=== PATIENT | female | born 1975 | race Caucasian/White ===

== ENCOUNTER 2024-07-04 08:24 | Day surgery (SDC) | payer MEDICAID, SELFPAY ==
[2024-06-29 07:58] VITALS: BMI 31.3
--- NOTE | 2024-07-01 09:09 | HO.ANESPROP2 ---
Documented by User: Vee Elder NP 07/01/24 09:10 HPI - Anesthesia Eval Consult details Narrative: 48yo F for Left Cataract Extraction IOL Insertion No previous cataract on record Eliquis for PE Ostomy in situ [facility] Past Medical History Medical History (Updated 07/04/24 @ 09:31 by Tracey Theodore, RN) Port-A-Cath in place On anticoagulant therapy Pulmonary embolism Colostomy in place Hypomagnesemia Anemia Metastatic colon cancer to liver Surgical History Surgical History (Updated 06/29/24 @ 07:46 by Luli Kendrick RN) Hx of colectomy Social History Social History Are you DNR?: No Advance Directives: No Advance Directives Information Provided: Yes Advance Directives on File: No Meds Allergies Allergy/AdvReac Type Severity Reaction Status Date / Time lisinopril Allergy Severe Anaphylaxis Verified 07/04/24 09:30 Home Medications ?Medication ?Instructions ?Recorded ?Confirmed ?Last Taken ?Type apixaban 5 mg tablet (Eliquis) 5 mg PO BID 06/29/24 06/29/24 Unknown History desonide 0.05 % topical cream 1 appl topical BID 06/29/24 06/29/24 Unknown History magnesium oxide 400 mg (241.3 mg 400 mg PO DAILY 06/29/24 06/29/24 Unknown History magnesium) tablet metoprolol tartrate 25 mg tablet 25 mg PO BID 06/29/24 06/29/24 Unknown History oxycodone 10 mg tablet 10 mg PO Q6H PRN severe pain 06/29/24 06/29/24 Unknown History Exam Height,Weight and Vital Signs: Height 5 ft 5 in Weight 85.3 kg Assessment and Plan Assessment Anesthesia Assessment: Chart Reviewed Documented by User: Thania Cevallos MD 07/04/24 09:55 [facility] Past Medical History Medical History (Updated 07/04/24 @ 09:31 by Tracey Theodore RN) Port-A-Cath in place On anticoagulant therapy Pulmonary embolism Colostomy in place Hypomagnesemia Anemia Metastatic colon cancer to liver Family History Family history of problems with anesthesia: No Surgical History Surgical History (Updated 06/29/24 @ 07:46 by Luli Kendrick RN) Hx of colectomy History of Problems with Anesthesia: No Social History Social History Are you DNR?: No Advance Directives: No Advance Directives Information Provided: Yes Advance Directives on File: No Meds Allergies Allergy/AdvReac Type Severity Reaction Status Date / Time lisinopril Allergy Severe Anaphylaxis Verified 07/04/24 09:30 Home Medications ?Medication ?Instructions ?Recorded ?Confirmed ?Last Taken ?Type apixaban 5 mg tablet (Eliquis) 5 mg PO BID 06/29/24 06/29/24 Unknown History desonide 0.05 % topical cream 1 appl topical BID 06/29/24 06/29/24 Unknown History magnesium oxide 400 mg (241.3 mg 400 mg PO DAILY 06/29/24 06/29/24 Unknown History magnesium) tablet metoprolol tartrate 25 mg tablet 25 mg PO BID 06/29/24 06/29/24 Unknown History oxycodone 10 mg tablet 10 mg PO Q6H PRN severe pain 06/29/24 06/29/24 Unknown History Exam Airway Mallampati Class: II (missing a couple, denies anything loose) TM Dist: >3cm Neck ROM: Full Heart: rrr Lungs: cta Assessment and Plan Assessment Anesthesia Assessment: Anesthesia Plan Discussed Final Anesthetic Review Family History of Problems with Anesthesia: No History of Problems with Anesthesia: No NPO: Yes ASA Class: III Final Preanesthetic Review: No Changes in Pt Med Stat, Meds/Allgs Chart Reviewed and Consent Obtained/Reviewed Patient Risk: Intermediate Procedure Risk: Low Anesthetic Plan Anesthetic Plan: MAC: Disposition: Standard PACU
[2024-07-04 09:45] VITALS: BP 101/75; PULSE 86; RESP 16; TEMP 36.7; O2SAT 99
[2024-07-04 09:45] LABS: UPreg QC Valid YES; Urine Pregnancy NEGATIVE (NEGATIVE)
[2024-07-04] MEDS: Lactated Ringers 500 ML 50 ML IV (09:51)
[2024-07-04] MEDS: Tetracaine HCl/PF 0.5% Oph Sol 4 ML DROPS 1 DROP EYE-LEFT (09:52)
[2024-07-04] MEDS: Cyclopentolate 1 % Ophth Sol 2 ML DRPBTL 1 DROP EYE-LEFT ×3 (10:01→10:06)
[2024-07-04] MEDS: Tropicamide 1 % Ophth Sol 3 ML BTL 1 DROP EYE-LEFT ×3 (10:01→10:06)
[2024-07-04] MEDS: Phenylephrine HCL 2.5% Oph SoL 2 ML BOTTLE 1 DROP EYE-LEFT ×3 (10:02→10:07)
[2024-07-04] MEDS: Ketorolac Tromethamine 0.5% Op 10 ML DROPS 1 DROP EYE-LEFT ×3 (10:02→10:07)
--- NOTE | 2024-07-04 10:22 | MHC.SHP ---
Pre-Procedural Eval Section A - 24 Hr Update-Section A only Date of Service: 07/04/24 The patient is an INPATIENT: No Changes since office visit: No Cold of Flu in the past 2 weeks, No New Medical Problems, No Changes in Medication and No Patient answered all questions The patient has been examined within 24 hours of the surgical procedure. The History & Physical has been completed within 30 days and I have reviewed it.: Yes Section B - Complete if H&P > 30 days Chief Complaint: Age-related nuclear cataract, left eye Allergies: Allergies Allergy/AdvReac Type Severity Reaction Status Date / Time lisinopril Allergy Severe Anaphylaxis Verified 07/04/24 09:30 Plan Diagnosis/Plan: Unchanged I have reviewed the history and physical and performed a pertinent physical examination on my patient. No changes have occurred unless specified. Time Spent With Patient Time: Total time managing care of this patient today ____ minutes.
--- NOTE | 2024-07-04 10:23 | HO.PNOPHT ---
Ophthalmology Procedure Procedure Date of Service: 07/04/24 Ophthalmology Viscoelastic: Healon Duet Dual Pack Pro Ophthalmology Lenses: IOL Acrysof MP - MA60AC (20.5) Procedure Notes: PREOPERATIVE DIAGNOSIS: Decreased visual acuity left eye secondary to cataract POSTOPERATIVE DIAGNOSIS: Same PROCEDURE: Left cataract extraction with intraocular lens insertion SURGEON: Phill Ybarra M.D. ANESTHESIA: Topical/MAC ESTIMATED BLOOD LOSS: None COMPLICATIONS: None After obtaining informed consent, the patient was brought to the operation room suite and placed in the supine position. After adequate sedation per anesthesia, topical drops of Tetracaine were given to the left eye. The eye was then prepped and draped in the usual sterile fashion. The operating room microscope was then positioned over the operative eye and a lid speculum placed. A paracentesis was created. White cataract required Visian blue. Viscoelastic was then instilled into the anterior chamber. A three plane incision was then created temporally, utilizing a 2.85 mm keratome. Capsulotomy forceps were then utilized to create a circular tear capsulotomy. Hydrodissection and hydrodelineation were carried out until adequate mobilization of the nucleus occurred. Phacoemulsification was then utilized to remove the dense central nucleus followed by removal of the cortical material utilizing the automated aspiration irrigation unit. Viscoat elastic was instilled into the posterior capsular bag followed by placement of a posterior chamber intraocular lens without difficulty. The residual Viscoat elastic was then removed utilizing the automated IA machine. The wound was check and found to be watertight. The patient tolerated the procedure well and the lid speculum was removed. Intracameral injection of Vigamox 0.1 mL followed by a subtenon injection of Kenalog-40 0.2 mL were administered. The patient will be seen in the a.m.
[2024-07-04 11:06] VITALS: BP 103/72; PULSE 85; RESP 20; TEMP 36.4; O2SAT 99
== END 2024-07-04 11:12 | disposition home or self-care (01) ==
PROVIDERS: Nurse Practitioner; Visit Provider Ophthalmology
PROC: (CPT 66985; principal; 2024-07-04 10:30)
DX: H25.12 Age-related nuclear cataract, left eye (principal); H54.7 Unspecified visual loss; E83.42 Hypomagnesemia; D64.9 Anemia, unspecified; I26.99 Other pulmonary embolism without acute cor pulmonale; Z79.01 Long term (current) use of anticoagulants; C18.9 Malignant neoplasm of colon, unspecified; C78.7 Secondary malignant neoplasm of liver and intrahepatic bile duct; Z93.3 Colostomy status; Z95.828 Presence of other vascular implants and grafts; Z79.899 Other long term (current) drug therapy; Z88.8 Allergy status to other drugs, medicaments and biological substances
CPT/HCPCS: 66984; 81025; J2250; J3301; V2630

== ENCOUNTER 2024-08-01 08:14 | Day surgery (SDC) | payer MEDICAID, SELFPAY ==
[2024-06-29 07:59] VITALS: BMI 31.3
--- NOTE | 2024-07-28 13:45 | HO.ANESPROP2 ---
Documented by User: Vee Elder NP 07/28/24 13:46 HPI - Anesthesia Eval Consult details Narrative: 49yo F for Right Cataract Extraction IOL Insertion Left eye 07/04/24: Midaz 2 Eliquis for PE Ostomy in situ [facility] Past Medical History Medical History Port-A-Cath in place On anticoagulant therapy Pulmonary embolism Colostomy in place Hypomagnesemia Anemia Metastatic colon cancer to liver Family History Family history of problems with anesthesia: No Surgical History Surgical History Hx of left cataract extraction Hx of colectomy History of Problems with Anesthesia: No Social History Social History Are you DNR?: No Advance Directives: No Advance Directives Information Provided: Yes Advance Directives on File: No Meds Allergies Allergy/AdvReac Type Severity Reaction Status Date / Time lisinopril Allergy Severe Anaphylaxis Verified 08/01/24 09:38 Home Medications ?Medication ?Instructions ?Recorded ?Confirmed ?Last Taken ?Type apixaban 5 mg tablet (Eliquis) 5 mg PO BID 06/29/24 06/29/24 Unknown History desonide 0.05 % topical cream 1 appl topical BID 06/29/24 06/29/24 Unknown History magnesium oxide 400 mg (241.3 mg 400 mg PO DAILY 06/29/24 06/29/24 Unknown History magnesium) tablet metoprolol tartrate 25 mg tablet 25 mg PO BID 06/29/24 06/29/24 Unknown History oxycodone 10 mg tablet 10 mg PO Q6H PRN severe pain 06/29/24 06/29/24 Unknown History Exam Height,Weight and Vital Signs: Height 5 ft 5 in Weight 85.3 kg Assessment and Plan Assessment Anesthesia Assessment: Chart Reviewed Final Anesthetic Review Family History of Problems with Anesthesia: No History of Problems with Anesthesia: No Documented by User: Miladys Minor MD 08/01/24 10:04 [facility] Past Medical History Medical History Port-A-Cath in place On anticoagulant therapy Pulmonary embolism Colostomy in place Hypomagnesemia Anemia Metastatic colon cancer to liver Functional capacity: bed bound Surgical History Surgical History Hx of left cataract extraction Hx of colectomy Social History Social History Are you DNR?: No Advance Directives: No Advance Directives Information Provided: Yes Advance Directives on File: No Meds Allergies Allergy/AdvReac Type Severity Reaction Status Date / Time lisinopril Allergy Severe Anaphylaxis Verified 08/01/24 09:38 Home Medications ?Medication ?Instructions ?Recorded ?Confirmed ?Last Taken ?Type apixaban 5 mg tablet (Eliquis) 5 mg PO BID 06/29/24 06/29/24 Unknown History desonide 0.05 % topical cream 1 appl topical BID 06/29/24 06/29/24 Unknown History magnesium oxide 400 mg (241.3 mg 400 mg PO DAILY 06/29/24 06/29/24 Unknown History magnesium) tablet metoprolol tartrate 25 mg tablet 25 mg PO BID 06/29/24 06/29/24 Unknown History oxycodone 10 mg tablet 10 mg PO Q6H PRN severe pain 06/29/24 06/29/24 Unknown History Exam Airway Mallampati Class: III TM Dist: >3cm Neck ROM: Full Loose/Missing/Broken Teeth: No Heart: RRR Lungs: CTA Assessment and Plan Assessment Anesthesia Assessment: Anesthesia Plan Discussed Final Anesthetic Review NPO: Yes ASA Class: III Final Preanesthetic Review: Meds/Allgs Chart Reviewed, Consent Obtained/Reviewed and Anes Risks/Benef Reviewed Patient Risk: Intermediate Procedure Risk: Low Anesthetic Plan Anesthetic Plan: MAC: Disposition: Standard PACU
[2024-08-01 09:52] LABS: UPreg QC Valid YES; Urine Pregnancy NEGATIVE (NEGATIVE)
[2024-08-01] MEDS: Tetracaine HCl/PF 0.5% Oph Sol 4 ML DROPS 1 DROP EYE-RIGHT (09:52)
[2024-08-01] MEDS: Cyclopentolate 1 % Ophth Sol 2 ML DRPBTL 1 DROP EYE-RIGHT ×3 (09:53→10:04)
[2024-08-01] MEDS: Tropicamide 1 % Ophth Sol 3 ML BTL 1 DROP EYE-RIGHT ×3 (09:54→10:05)
[2024-08-01] MEDS: Ketorolac Tromethamine 0.5% Op 10 ML DROPS 1 DROP EYE-RIGHT ×3 (09:56→10:07)
[2024-08-01] MEDS: Phenylephrine HCL 2.5% Oph SoL 2 ML BOTTLE 1 DROP EYE-RIGHT ×3 (09:57→10:08)
[2024-08-01] MEDS: Lactated Ringers 500 ML 50 ML IV (09:58)
[2024-08-01 10:02] VITALS: BP 100/77; PULSE 78; RESP 15; TEMP 36.4; O2SAT 100
--- NOTE | 2024-08-01 10:14 | P.PCNO_ITS ---
Ophthalmology Procedure Procedure Date of Service: 08/01/24 Ophthalmology Viscoelastic: Healon Duet Dual Pack Pro Ophthalmology Lenses: IOL Acrysof MP - MA60AC (20.5) Procedure Notes: PREOPERATIVE DIAGNOSIS: Decreased visual acuity right eye secondary to cataract POSTOPERATIVE DIAGNOSIS: Same PROCEDURE: Right cataract extraction with intraocular lens insertion, White Cataract reqired Vision Blue SURGEON: Phill Ybarra M.D. ANESTHESIA: Topical/MAC ESTIMATED BLOOD LOSS: None COMPLICATIONS: None After obtaining informed consent, the patient was brought to the operating room suite and placed in the supine position. After adequate sedation per anesthesia, topical drops of Tetracaine were given to the right eye. The eye was then prepped and draped in the usual sterile fashion. The operating room microscope was then positioned over the operative eye and a lid speculum placed. A paracentesis was created. Viscoelastic was then instilled into the anterior chamber. A three plane incision was then created temporally, utilizing a 2.85 mm keratome. Air was utilized to fill the anterior Chamber followed by instilling vision blue dye.Capsulotomy forceps were then utilized to create a circular tear capsulotomy. Hydrodissection and hydrodelineation were carried out until adequate mobilization of the nucleus occurred. Phacoemulsification was then utilized to remove the dense central nucleus followed by removal of the cortical material utilizing the automated aspiration irrigation unit. Viscoelastic was instilled into the posterior capsular bag followed by placement of a posterior chamber intraocular lens without difficulty. The residual Viscoelastic was then removed utilizing the automated IA machine. The wound was checked and found to be watertight. The patient tolerated the procedure well and the lid speculum was removed. Intracameral injection of Viga mox 0.1 mL followed by a subtenon injection of Kenalog-40 0.2 mL were administered. The patient will be seen in the a.m.
--- NOTE | 2024-08-01 10:14 | MHC.SHP ---
Pre-Procedural Eval Section A - 24 Hr Update-Section A only Date of Service: 08/01/24 The patient is an INPATIENT: No Changes since office visit: No Cold of Flu in the past 2 weeks, No New Medical Problems, No Changes in Medication and No Patient answered all questions The patient has been examined within 24 hours of the surgical procedure. The History & Physical has been completed within 30 days and I have reviewed it.: Yes Section B - Complete if H&P > 30 days Chief Complaint: Age-related nuclear cataract, right eye Allergies: Allergies Allergy/AdvReac Type Severity Reaction Status Date / Time lisinopril Allergy Severe Anaphylaxis Verified 08/01/24 09:38 Plan Diagnosis/Plan: Unchanged I have reviewed the history and physical and performed a pertinent physical examination on my patient. No changes have occurred unless specified. Time Spent With Patient Time: Total time managing care of this patient today ____ minutes.
[2024-08-01 10:48] VITALS: BP 112/61; PULSE 87; RESP 16; TEMP 36.1; O2SAT 99
== END 2024-08-01 10:57 | disposition home or self-care (01) ==
PROVIDERS: Nurse Practitioner; Visit Provider Ophthalmology
PROC: (CPT 66985; principal; 2024-08-01 11:00)
DX: H25.11 Age-related nuclear cataract, right eye (principal); H54.7 Unspecified visual loss; C18.9 Malignant neoplasm of colon, unspecified; C78.7 Secondary malignant neoplasm of liver and intrahepatic bile duct; Z93.3 Colostomy status; D64.9 Anemia, unspecified; Z86.711 Personal history of pulmonary embolism; Z79.01 Long term (current) use of anticoagulants; Z79.899 Other long term (current) drug therapy; Z88.8 Allergy status to other drugs, medicaments and biological substances; Z87.891 Personal history of nicotine dependence
CPT/HCPCS: 66984; 81025; J2250; J3301; V2630